=== PATIENT | male | born 1945 | race Two or more races ===

== ENCOUNTER 2023-01-23 12:55 | Emergency (ER) | payer OTHER ==
[~2023-01-23] VITALS: Ht 175.3 cm; Wt 85.9 kg
[2023-01-23 14:35] VITALS: BP 136/83; PULSE 78; RESP 20; TEMP 98.1; O2SAT 95
[2023-01-23] MEDS ORDERED: LIDOCAINE 1% HCL (LOCAL ANESTH.) INJ 20ML MDV IJ ONE (16:00)
[2023-01-23] MEDS ORDERED: CEPH500C PO (17:02)
== END 2023-01-23 17:12 | disposition home or self-care (01) ==
LOC: ER 12:55
DX: S02.2XXA Fracture of nasal bones, initial encounter for closed fracture (principal); S01.81XA Laceration without foreign body of other part of head, initial encounter; I10 Essential (primary) hypertension; W01.0XXA Fall on same level from slipping, tripping and stumbling without subsequent striking against object, initial encounter; Y93.89 Activity, other specified; Y92.89 Other specified places as the place of occurrence of the external cause; Y99.8 Other external cause status
CPT/HCPCS: 12013; 70160; 70450; 99284; J2001